=== PATIENT | female | born 1975 | race Caucasian/White ===

== ENCOUNTER → 2017-04-05 | Outpatient (CLI) | payer BC ==
[~2017-04-05] MED LIST: IBUP-1050 PO; PRENTAB26 PO
[2017-04-05 19:36] LABS: URINE APPEARANCE CLEAR (CLEAR); URINE BILIRUBIN NEG (NEG); URINE COLOR YELLOW; URINE NITRITE NEG (NEG); URINE SPECIFIC GRAVITY 1.015 (1.000-1.030); UROBILINOGEN NEG (NEG)
[2017-04-05 19:45] LABS: MANUAL MICROSCOPIC REQUIRED? NO; REVIEW REQ? NO
== END | disposition home or self-care (01) ==
LOC: C.LABSPEC 17:42
PROVIDERS: ATTEND Obstetrics & Gynecology
DX: O09.521 Supervision of elderly multigravida, first trimester (principal)

== ENCOUNTER → 2017-04-20 | Outpatient (CLI) | payer BC | END | disposition home or self-care (01) | LOC: C.PAPS 07:59 | PROVIDERS: ATTEND Obstetrics & Gynecology | DX: Z12.4 Encounter for screening for malignant neoplasm of cervix (principal) ==

== ENCOUNTER → 2017-04-20 | Outpatient (CLI) | payer BC ==
[2017-04-24 11:08] LABS: CHLAMYDIA TRACH RNA*** NOT DETECTED (NOT DETECTED); GC (NEIS GONORRHOEAE)RNA** NOT DETECTED (NOT DETECTED)
== END | disposition home or self-care (01) ==
LOC: C.LABSPEC 17:21
PROVIDERS: ATTEND Obstetrics & Gynecology
DX: O09.521 Supervision of elderly multigravida, first trimester (principal)

== ENCOUNTER → 2017-04-23 | Outpatient (CLI) | payer BC ==
[2017-04-23 11:14] LABS: PATIENT HEIGHT 167.6 cm
[2017-04-23 11:37] LABS: BASO % 0.1 %; BASO ABS # 0.01 K/uL (0-0.2); COMPLETE YES; HEMATOCRIT 38.7 % (37-47); IG% 0.3 %; LYMPH % 28.1 %; LYMPH ABS # 2.01 K/uL (1.2-3.4); MEAN CELL VOLUME 90.4 fL (80-100); MEAN CORPUSCULAR HEMOGLOBIN 31.5 pg (25-34); MEAN CORPUSCULAR HGB CONC 34.9 g/dl (32-36); MEAN PLATELET VOLUME 9.3 fL (7.4-10.4); MONO % 4.5 %; PLATELET COUNT 279 K/uL (130-400); RED BLOOD COUNT 4.28 M/uL (4.2-5.4); WHITE BLOOD COUNT 7.15 K/uL (4.8-10.8)
[2017-04-23 11:55] LABS: URINE TOTAL PROTEIN 5.8 mg/dl (0-11.9)
[2017-04-23 12:11] LABS: CREATININE 0.59 mg/dl (0.6-1.2); URINE TOTAL PROTEIN CALC 168.2 mg/24 hr (0-149.1)
== END | disposition home or self-care (01) ==
LOC: C.LAB 10:42
PROVIDERS: ATTEND Obstetrics & Gynecology
DX: O09.291 Supervision of pregnancy with other poor reproductive or obstetric history, first trimester (principal); O09.521 Supervision of elderly multigravida, first trimester

== ENCOUNTER → 2017-05-31 | Outpatient (CLI) | payer BC ==
[2017-05-31 14:12] LABS: GTGD 50 Grams
== END | disposition home or self-care (01) ==
LOC: C.LAB1850 09:11
PROVIDERS: ATTEND Obstetrics & Gynecology
DX: O09.522 Supervision of elderly multigravida, second trimester (principal)

== ENCOUNTER → 2017-08-27 | Outpatient (CLI) | payer BC ==
[2017-08-27 14:54] LABS: HEMATOCRIT 33.6 % (37-47)
[2017-08-27 16:29] LABS: URINE APPEARANCE CLEAR (CLEAR); URINE BILIRUBIN NEG (NEG); URINE COLOR YELLOW; URINE EPITHELIAL CELL AUTO 0-5 /lpf (0-5); URINE NITRITE NEG (NEG); URINE SPECIFIC GRAVITY 1.011 (1.000-1.030); UROBILINOGEN NEG (NEG)
[2017-08-27 16:50] LABS: MANUAL MICROSCOPIC REQUIRED? NO; REVIEW REQ? NO
[2017-08-27 17:14] LABS: GTGD 50 Grams
== END | disposition home or self-care (01) ==
LOC: C.LAB1850 12:10
PROVIDERS: ATTEND Obstetrics & Gynecology
DX: O09.523 Supervision of elderly multigravida, third trimester (principal); O09.293 Supervision of pregnancy with other poor reproductive or obstetric history, third trimester; Z3A.00 Weeks of gestation of pregnancy not specified

== ENCOUNTER → 2017-10-17 | Outpatient (CLI) | payer BC | END | disposition home or self-care (01) | LOC: C.LABSPEC 15:05 | PROVIDERS: ATTEND Obstetrics & Gynecology | DX: O09.523 Supervision of elderly multigravida, third trimester (principal); Z3A.00 Weeks of gestation of pregnancy not specified ==

== ENCOUNTER 2017-11-08 05:44 | Inpatient (IN) | payer BC ==
--- NOTE | 2017-11-07 13:33 | PAT Medication Instructions ---
Service Date Nov 07, 2017. Current Home Medication List Clindamycin Phosphate (Topical (Cleocin-T), 1 APPLN TOP BID PRN for acne Multivit/Min/Iron/Fol Ac/Pren ( Vitamin), 1 TAB PO DAILY Medication Instructions For Your Scheduled Surgery - Hold the following medications the morning of surgery: Clindamycin Phosphate (Topical (Cleocin-T), 1 APPLN TOP BID PRN for acne Multivit/Min/Iron/Fol Ac/Pren ( Vitamin), 1 TAB PO DAILY If you have any questions please call us at [phone] or [phone] or [phone]
[2017-11-07 14:01] LABS: BASO % 0.2 %; BASO ABS # 0.02 K/uL (0-0.2); COMPLETE YES; EOS % 0.5 %; HEMATOCRIT 35.9 % (37-47); IG% 0.3 %; LYMPH % 24.2 %; LYMPH ABS # 2.37 K/uL (1.2-3.4); MEAN CORPUSCULAR HEMOGLOBIN 33.8 pg (25-34); MEAN CORPUSCULAR HGB CONC 35.9 g/dl (32-36); MEAN PLATELET VOLUME 10.3 fL (7.4-10.4); MONO % 4.7 %; NEUT % 70.1 %; PLATELET COUNT 264 K/uL (130-400); RED BLOOD COUNT 3.82 M/uL (4.2-5.4); WHITE BLOOD COUNT 9.78 K/uL (4.8-10.8)
--- NOTE | 2017-11-07 18:10 | HISTORY & PHYSICAL EXAMINATION ---
DATE OF ADMISSION: 11/08/2017 PREOPERATIVE HISTORY AND PHYSICAL HISTORY OF PRESENT ILLNESS: Nikki is . She requests repeat section and bilateral tubal ligation. She is due November 14 and she is advanced maternal age. Her has been uncomplicated. She has been monitored closely for her advanced maternal age and prior HELLP syndrome, although she has had no evidence of it at this . PAST MEDICAL HISTORY: Healthy. PAST SURGICAL HISTORY: Prior wrist fracture and prior section. OBSTETRICAL HISTORY: One prior at 37 weeks and 6 days for severe preeclampsia, this was at [facility]. SOCIAL HISTORY: Nonsmoker, nondrinker. FAMILY HISTORY: Noncontributory. REVIEW OF SYSTEMS: Negative. PHYSICAL EXAMINATION: VITAL SIGNS: Stable. She is afebrile. CHEST: Clear. CARDIOVASCULAR: Normal rate and rhythm. No audible murmur. ABDOMEN: Gravid. heart rate tones reactive on nonstress test. IMPRESSION AND PLAN: Reviewed repeat section. Risks, benefits and alternatives. Consent signed. She also wishes a tubal ligation. Discussed risks of procedure of , tubal including but not limited to risks of bleeding, infection, injury to bowel, bladder, ureter, deep vein thrombosis and pulmonary embolus. Discussed an increased rate of internal organ injury on prior sections. We discussed failure rates and irreversibility of tubal ligations. The patient wishes to proceed with section and bilateral tubal ligation.
[~2017-11-08] VITALS: Ht 167.6 cm; Wt 80.0 kg
[2017-11-08] VITALS (12 sets, daily range): BP systolic 127–136; BP diastolic 63–76; PULSE 51–55; TEMP 36.5–36.8; O2SAT 98–100; Ht 167.6 cm; Wt 80.0 kg
[~2017-11-08 05:44] MED LIST changes: +CLIN1GEL TOP; -IBUP-1050 PO
[2017-11-08] MEDS ORDERED: LACTATED RINGER'S 1000ML 1,000 ML IV SCH ×2 (05:53→06:00)
[2017-11-08] MEDS ORDERED: CEFAZOLIN IV 2,000 MG in SYRINGE 0 ML IV SCH (06:00)
[2017-11-08] MEDS ORDERED: CITRIC ACID/SODIUM CITRATE 15 ML UDC PO SCH (06:00)
[2017-11-08 06:20] LABS: BASO % 0.3 %; BASO ABS # 0.03 K/uL (0-0.2); COMPLETE YES; EOS % 0.9 %; HEMATOCRIT 35.5 % (37-47); IG% 0.5 %; LYMPH % 33.3 %; LYMPH ABS # 3.39 K/uL (1.2-3.4); MEAN CELL VOLUME 93.2 fL (80-100); MEAN CORPUSCULAR HEMOGLOBIN 33.3 pg (25-34); MEAN CORPUSCULAR HGB CONC 35.8 g/dl (32-36); MEAN PLATELET VOLUME 9.8 fL (7.4-10.4); MONO % 6.9 %; NEUT % 58.1 %; PLATELET COUNT 254 K/uL (130-400); RED BLOOD COUNT 3.81 M/uL (4.2-5.4); WHITE BLOOD COUNT 10.19 K/uL (4.8-10.8)
--- NOTE | 2017-11-08 07:26 | History & Physical Bridge Note ---
H&P Re-Evaluation Bridge Note: I have examined the patient, reviewed the History & Physical and in the interval since the performance of the History & Physical I have noted the following changes of clinical significance: No changes noted
[2017-11-08] MEDS ORDERED: FENTANYL CITRATE INJ 50 MCG/1 ML 2 ML VIAL ONE (07:36)
[2017-11-08] MEDS ORDERED: MORPHINE SULFATE PF 2MG/2ML SYR ONE (07:36)
[2017-11-08] MEDS ORDERED: OXYTOCIN INJ 10 UNITS/ML VIAL ONE (07:37)
[2017-11-08] MEDS ORDERED: EpHEDrine SULFATE 50MG/5ML SYR ONE (07:54)
[2017-11-08] MEDS ORDERED: ONDANSETRON INJ 2 MG/ML 2 ML VIAL ONE (07:54)
--- NOTE | 2017-11-08 08:36 | [facility] Post Operative Brief Note ---
Immediate Operative Summary Operative Date Nov 08, 2017. Pre-Operative Diagnosis Repeat caesarean section and patient desires permanent sterilization Post-Operative Diagnosis Same as pre-op Procedure(s) Performed Low transverse uterine incision, repeat caesarean section and bilateral tubal ligation, delivery of live female child at [address] Almaz Rosado Tow Truck Driver Surgeon(s) Dr. Karime Peña, Dr. Evelyne Hanson Estimated Blood Loss 400 ml Findings normal anatomy Specimens A: Placenta B: Cord Blood C: Cord blood gases D: Portion of Right Fallopian Tube E: Portion of Left Fallopian Tube Drains Elizondo Anesthesia Spinal Complication(s) None Disposition L&D
[2017-11-08] MEDS ORDERED: MAGNESIUM HYDROXIDE SUSP 30 ML UDC PO PRN (08:45)
[2017-11-08] MEDS ORDERED: DC PCA PRN (08:45)
[2017-11-08] MEDS ORDERED: SENNA 8.6 MG TAB PO PRN (08:45)
[2017-11-08] MEDS ORDERED: LANOLIN OINT EXT PRN ×2 (08:45)
[2017-11-08] MEDS ORDERED: SUPERCREAM 0.870 % 15GM JAR EXT PRN (08:45)
[2017-11-08] MEDS ORDERED: LACTATED RINGER'S 1000ML 500 ML IV PRN (08:49)
[2017-11-08] MEDS ORDERED: NALOXONE HCL INJ 1 MG in SODIUM CHLORIDE 0.9% 1000ML 1,000 ML IV PRN (08:49)
[2017-11-08] MEDS ORDERED: NALOXONE HCL INJ 0.08 MG in SYRINGE 1.8 ML IV PRN (08:49)
[2017-11-08] MEDS ORDERED: SODIUM CHLORIDE 0.9% 1000ML 1,000 ML IV PRN (08:49)
--- NOTE | 2017-11-08 08:53 | Anesthesiology Progress Note ---
Anesthesia Post Op Note Date & Time Nov 08, 2017 at 08:53 Notes Mental Status: alert / awake / arousable, participated in evaluation Pt Amnestic to Procedure: Yes Nausea / Vomiting: adequately controlled Pain: adequately controlled Airway Patency, RR, SpO2: stable & adequate BP & HR: stable & adequate Hydration State: stable & adequate Neuraxial Anesthesia: was administered, sensory block is resolving Anesthetic Complications: no major complications apparent
[2017-11-08] MEDS ORDERED: NO NARCOTICS OR SEDATIVES SCH (09:00)
[2017-11-08] MEDS ORDERED: NALOXONE HCL 0.4 MG/1 ML VIAL/CARP IV PRN (09:00)
[2017-11-08] MEDS ORDERED: MEPERIDINE HCL 25 MG/ML CARP IV PRN (09:00)
[2017-11-08] MEDS ORDERED: NALBUPHINE HCL INJ 10 MG/ML AMP IV PRN (09:00)
[2017-11-08] MEDS ORDERED: MoRPHine SULFATE PF 1 MG/ML 10 ML AMP/VIAL EPI PRN (09:00)
[2017-11-08] MEDS ORDERED: EpHEDrine SULFATE INJ 50 MG/ML AMP IV PRN (09:00)
[2017-11-08] MEDS ORDERED: DiphenhydrAMINE HCL 50 MG/ML VIAL IV PRN (09:00)
[2017-11-08] MEDS ORDERED: MoRPHine SULFATE 2 MG/ML CARP IV PRN (09:00)
[2017-11-08] MEDS ORDERED: ONDANSETRON INJ 2 MG/ML 2 ML VIAL IV PRN (09:00)
--- NOTE | 2017-11-08 09:08 | OPERATIVE REPORT ---
DATE OF OPERATION: 11/08/2017 PREOPERATIVE DIAGNOSES: Repeat and the patient desires permanent sterilization. POSTOPERATIVE DIAGNOSES: Same. PROCEDURE: Low segment transverse section and bilateral tubal ligation. SURGEON: Dr. Rosado. PLAN COORDINATOR: Dr. Jessica Peña and Dr. Hanson, [facility] resident. ESTIMATED BLOOD LOSS: 400 mL FINDINGS: Normal anatomy. SPECIMENS: Placenta, cord blood, cord gases, portion of right fallopian tube, portion of left fallopian tube. DRAINS: Elizondo. ANESTHETIC: Spinal. COMPLICATIONS: None. DISPOSITION: Labor and delivery. Nikki was given a spinal anesthetic, prepped and draped in supine position after having a Elizondo catheter placed in her bladder by nursing. Skin area was tested with pickups with teeth and IV antibiotics were given preoperatively. Scalpel used over previous Pfannenstiel incision, dissecting down through subcutaneous fat to the fascia in the midline. Fascia cut laterally with curved Mcnally scissors. Rectus muscles released from the fascia superiorly and inferiorly with the curved Mayos, rectus muscle split. Peritoneal cavity entered in a superior location. Peritoneal cavity opening enlarged to allow exposure. Bladder retractor placed. Metzenbaums used to dissect away the bladder flap from the low segment of the uterus. Incision of the uterus with a scalpel, low segment transverse. Entry of the uterus was done bluntly with a hemostat and then incision extended in the usual fashion with the shaping machine operator's fingers. Clear fluid. Nuchal cord x1 which was released over the head. Baby was delivered by flexion of the head and then pressure on the abdomen by the daycare assistant. Mouth and then nares suctioned. Cord was passed easily over the head. Baby delivered by gentle traction. No excessive force used. Live vigorous female infant. Cord clamped and cut. Cord gases and cord blood obtained. Placenta removed from the uterus. Uterus exteriorized. IV Pitocin started. We used a moist lap to ensure all placenta removed from the uterus. Uterus then closed in the usual fashion, running 0 Monocryl locked and a second 0 Monocryl nonlocked. At this stage, we then performed the tubal ligation. This was done by modified Michael. Right fallopian tube was grasped with a [place], chromic stitch then used to tie off the fallopian tube both proximally and distally to the [place]. Hemostat placed at this time and a second tie was then placed below this for double ligation. Fallopian tube was then cut and then specimen sent to pathology. Hemostasis excellent. Same process repeated exactly on the right and the left. At this stage of the uterus, we suctioned the cul-de-sac and bladder flap regions and irrigated them. Uterus was placed back in the peritoneal cavity. On inspection, both fallopian tube sites were hemostatic as was the uterine incision and uterine corners. Instruments removed from the abdomen. Urine was clear at this stage. Rectus muscles were hemostatic. Fascia closed with 0 Vicryl, subcutaneous fat irrigated and closed with 3-0 Vicryl, skin closed with 4-0 subcuticular Monocryl and Steri-Strips. Sponge and instrument counts correct. I attest to the content of the Intraoperative Record and any orders documented therein. Any exception s are noted below.
[2017-11-08] MEDS ORDERED: LABETALOL HCL IV 5 MG/ML 20ML IV ONE (09:30)
[2017-11-08] MEDS: KETOROLAC TROMETHAMINE 30 MG/ML VIAL IV. PRN ×2 (11:07→22:27)
[2017-11-08] MEDS: SIMETHICONE 80 MG CHEW PO SCH ×3 (12:06→19:46)
[2017-11-08] MEDS: OXYTOCIN INJ 20 UNITS in LACTATED RINGER'S 1000ML 1,000 ML IV SCH ×2 (13:33→22:22)
[2017-11-08] MEDS: DOCUSATE SODIUM 100 MG CAP PO SCH (19:46)
[2017-11-09] VITALS: BP 128/75; PULSE 51; TEMP 36.3; O2SAT 98; O2SAT 99
[2017-11-09] MEDS ORDERED: ONDANSETRON INJ 2 MG/ML 2 ML VIAL IV PRN (02:00)
[2017-11-09] MEDS ORDERED: DC INTRASPINAL MORPHINE SCH (02:00)
[2017-11-09] MEDS ORDERED: OXYCODONE/ACETAMINOPHEN 5-325 TAB PO PRN (02:00)
[2017-11-09 04:00] VITALS: BP 126/70; PULSE 52; TEMP 36.5; O2SAT 99
[2017-11-09] MEDS: KETOROLAC TROMETHAMINE 30 MG/ML VIAL IV. PRN ×2 (05:11→06:46)
--- NOTE | 2017-11-09 06:47 | Progress Note ---
Subjective Nov 09, 2017. Subjective conversation w/ patient (pt reports episode of emesis yesterday afternoon - says she felt ill after having not napped all day, lots of visitors, took a pain pill and drank 5 jugs of water in one setting and then vomited. Denies any further episodes of emesis or nausea.), physical exam, chart review, lab review Ambulation: ambulating normally Voiding: no voiding problems Review of Systems Respiratory: No shortness of breath Abdomen: + vomiting (as above) Female : No dysuria Objective Vital Signs Date Time Temp Pulse Resp B/P (MAP) Pulse Ox O2 Delivery O2 Flow Rate FiO2 11/09/17 04:00 36.5 52 18 126/70 (88) 99 Room Air 11/09/17 00:00 36.3 51 18 128/75 (92) 99 Room Air 11/09/17 00:00 18 98 11/09/17 00:00 99 Room Air 11/08/17 23:00 18 98 11/08/17 22:00 16 99 11/08/17 21:00 18 100 11/08/17 20:00 18 100 11/08/17 19:55 36.8 55 18 136/76 (96) 100 Room Air 11/08/17 18:55 18 100 11/08/17 14:14 16 100 11/08/17 14:14 36.7 51 16 127/63 (84) 100 Room Air 11/08/17 14:01 18 100 11/08/17 13:35 18 99 11/08/17 13:03 18 100 11/08/17 13:03 36.6 53 18 136/75 (95) 100 Room Air 11/08/17 12:40 18 100 11/08/17 11:46 36.5 51 18 127/72 (90) 100 Room Air 11/08/17 11:46 18 100 11/08/17 11:46 100 Room Air Physical Exam General Appearance: WELL-APPEARING, WD/WN, NO APPARENT DISTRESS Respiratory/Chest: lungs clear, normal breath sounds, no respiratory distress Cardiovascular: regular rate, rhythm, no gallop Abdomen: normal bowel sounds, soft Fundus: Firm, Non-Tender, Relation to Umbilicus (1 below U) Incision Description: Clean, Dry & Intact Extremities: non-tender, normal inspection Laboratory Results Last 24 Hours Test 11/09/17 06:00 Assessment and Plan Post-Op Day#: 1 Continue Routine Care: 42 yof (now2) s/p repeat c/s 11/08 Vitals reviewed and wnl - pt says 50s for her pulse is normal for her Hgb 12.9, 12.7, today pending Pt doing well clinically - discussed listening to her body today and resting when she needs to rest, and minimizing too many visitors. Says only her mom and maybe her sister will be here today. Discussed possible dc tomorrow, pt wants this. Continue routine care - encourage ambulation, monitor lochia, control pain with motrin tylenol only, would rec avoiding percocet. ALIE HANSON FMR PGY 1 Resident Physician Supervision Note: I interviewed and examined the patient. Discussed with Dr. Hanson and agree with findings and plan as documented in the note. Any exceptions or clarifications are listed here: [None] Documented By: Aguilar Rosado Resident Tracking Resident Involvement: Resident Care Provided Care Provided: OB Delivery
[2017-11-09 07:05] LABS: BASO % 0.3 %; BASO ABS # 0.03 K/uL (0-0.2); COMPLETE YES; EOS % 1.6 %; HEMATOCRIT 33.8 % (37-47); IG% 0.3 %; LYMPH ABS # 2.08 K/uL (1.2-3.4); MEAN CELL VOLUME 92.1 fL (80-100); MEAN CORPUSCULAR HEMOGLOBIN 33.2 pg (25-34); MEAN CORPUSCULAR HGB CONC 36.1 g/dl (32-36); MEAN PLATELET VOLUME 9.8 fL (7.4-10.4); MONO % 5.9 %; NEUT % 73.9 %; PLATELET COUNT 223 K/uL (130-400); RED BLOOD COUNT 3.67 M/uL (4.2-5.4); WHITE BLOOD COUNT 11.54 K/uL (4.8-10.8)
[2017-11-09] MEDS: PRENATAL VITAMIN TAB PO SCH (08:50)
[2017-11-09] MEDS: SIMETHICONE 80 MG CHEW PO SCH ×4 (08:50→20:24)
[2017-11-09] MEDS: DOCUSATE SODIUM 100 MG CAP PO SCH ×2 (08:50→20:24)
[2017-11-09 09:30] VITALS: BP 133/72; PULSE 46; TEMP 36.8; O2SAT 99
[2017-11-09 11:30] VITALS: BP 140/81; PULSE 54; TEMP 37.1; O2SAT 99
[2017-11-09] MEDS: IBUPROFEN 600 MG TAB PO PRN ×3 (12:05→22:44)
[2017-11-09] MEDS: OXYCODONE/ACETAMINOPHEN 5-325 TAB PO PRN ×3 (12:59→22:44)
--- NOTE | 2017-11-09 13:27 | Discharge Instructions ---
Discharge Instructions Date of Service Nov 09, 2017. Admission Reason for Admission: Previous Delivery Discharge Discharge Diagnosis / Problem: Delivery Discharge Goals Goal(s): Routine recovery after Medications Continue Dispensed Medications: supercream, lansinoh Activity Recommendations Activity Limitations: per Instructions/Follow-up section . Instructions / Follow-Up Instructions / Follow-Up ACTIVITY RECOMMENDATIONS: * Gradual return to full activity over the next 2-3 weeks. * No lifting - nothing heavier than baby over the next 2-3 weeks. * Do not engage in vigorous exercise, sexual activity or sports until cleared by your physician. * Do not drive or operate any motorized equipment until cleared by your physician. * You may shower/bathe daily. MEDICATIONS: For discomfort or pain, you may use Acetaminophen (Tylenol), Ibuprofen (Advil), or Naproxen (Aleve) following the package directions. For constipation you may use Colace following the package directions. BREAST CARE: If you are not breast feeding: * Wear a supportive bra 24 hours a day for one to two weeks. * Avoid stimulating your breasts and nipples as much as possible during the first few weeks after delivery. * When taking a shower, have the warm water hit your back, not breasts. * When your breasts feel full, apply ice packs. Usually three to four times a day helps ease the discomfort. * Take a mild pain medication (Tylenol / Motrin) when you are uncomfortable. If breast feeding: * Use breast milk to lubricate nipples. Lansinoh cream may be used for sore nipples. You do not need to remove cream prior to breast feeding. If using a different brand of cream, check the label for directions regarding removal of cream prior to nursing. * Wear a supportive bra. * If having problems with breasts or breast feeding, call a marine engineering consultant or your health care provider. SPECIAL CARE INSTRUCTIONS: When you are discharged from the hospital, it is important for you to follow the instructions listed below: * During the first week at home, you should be able to care for yourself and your baby. In addition, the usual light household activities are encouraged. * Limit your activities to the way you feel. Do not try to clean the house or move furniture. Be sensible. * If you actively engage in sports and have done so up until the time of your delivery, you may resume these activities as soon as you feel able. This may take up to one month or even longer. Use good judgment. * Continue to take your vitamins for at least six weeks after the of your baby. * Your diet need not be limited unless you were on a special diet before your delivery. Breast-feeding mothers need around 2500 calories per day and at least 64-80 ounces of fluid per day (8 to 10 glasses). * You should eat foods from the four major food groups. Crash diets or fad diets are to be avoided. Eating lean meats, fresh fruits and vegetables, low-fat dairy products, high fiber foods and a regular exercise program, will help you get back to your pre- weight without putting your health at risk. * Constipation is sometimes a problem after delivery. Take a mild laxative as needed. If breast feeding, Milk of Magnesia is acceptable to use. You may use a suppository or Fleets enema. * A daily shower or tub bath is suggested. Wash incision daily with warm soapy water and pat dry. It doesn't need to be covered unless drainage is present. * A bloody vaginal discharge will usually continue until around four weeks . A small amount of bleeding may continue for as long as six weeks. Vaginal discharge changes from the bright red bleeding after delivery to pink then brownish and finally yellowish-pink before becoming white and disappearing. * Bleeding may increase with activity. Your first period may come in 4-8 weeks. If you are breast feeding, your period may be delayed even longer. * [place] (sex) can begin whenever both you and your partner feel comfortable and do not have any form of genital infection. It is recommended that you wait at least six weeks for internal and external healing to occur. If you have questions, please talk to your health care practitioner. A condom should be used to prevent infection and . * Foreplay, gentle intercourse and lubrication is very important the first several times to prevent pain. A water-based lubricant such as K-Y jelly or Astroglide may be used. * If you have RH negative blood and your baby is RH positive, you will receive RHOGAM by injection prior to discharge. The nurse will give you a card to keep with you that has the date and place that you received RHOGAM after delivery. * During your care, you had a Rubella screen done to check for the presence of rubella antibodies in your blood. If your test was negative, you will receive a Rubella vaccine prior to discharge. This vaccine may cause a fever, soreness at the injection site and flu-like symptoms. If these symptoms persist, notify your health care practitioner. is not advised for one month after a Rubella vaccine. * Verbalizes understanding of car seat law as reviewed with patient nursing. * Car Seat hand-out given and reviewed with patient by nursing. * Shaken baby information reviewed with patient by nursing. Call you doctor if: * Heavy bleeding (saturating several pads an hour) or passing clots the size of your fist. * A fever >101 degrees F (38.3 degrees C) on two occasions four hours apart and /or chills. * Unusual pain in the pelvic or vaginal areas. * Call the doctor for any increased redness, drainage or swelling around the incision and any pain unrelieved by prescribed pain medication. * "Baby Blues" lasting longer than two weeks. If you have any questions or concerns, call your health care practitioner at . FOLLOW UP VISIT: * Please call the office at to schedule a 6 week examination. It is important you keep this appointment. It is important for you to make arrangements for either yearly or twice yearly check-ups thereafter. Current Hospital Diet Patient's current hospital diet: Regular OB Diet Discharge Diet Recommended Diet: Regular Diet Procedures Procedures Performed: Low transverse uterine incision, repeat caesarean section and bilateral tubal ligation, delivery of live female child at 0806 Pending Studies Studies pending at discharge: no Medical Emergencies . Who to Call and When: Medical Emergencies: If at any time you feel your situation is an emergency, please call [phone] immediately. . Non-Emergent Contact Non-Emergency issues call your: Primary Care Provider . . "Provider Documentation" section prepared by Marguerite Hanson. . VTE Core Measure Inpt VTE Proph given/why not?: SCD's
[2017-11-09 16:15] VITALS: BP 126/75; PULSE 49; TEMP 36.8; O2SAT 96
[2017-11-09] MEDS ORDERED: BISACODYL 5 MG TABEC PO ONE (22:00)
[2017-11-09 23:50] VITALS: BP 135/75; PULSE 51; TEMP 36.5
[2017-11-10] MEDS: IBUPROFEN 600 MG TAB PO PRN (05:27)
[2017-11-10] MEDS: OXYCODONE/ACETAMINOPHEN 5-325 TAB PO PRN ×2 (05:28→10:40)
[2017-11-10 06:55] LABS: HEMATOCRIT 34.8 % (37-47)
--- NOTE | 2017-11-10 07:58 | Progress Note ---
Subjective Nov 10, 2017. Subjective conversation w/ patient, physical exam, chart review, lab review Ambulation: ambulating normally Voiding: no voiding problems Passing Gas: Yes Diet Tolerance: Regular Diet Lochia: Moderate Feeding Type: Breast Feeding Pain: controlled Review of Systems Respiratory: No shortness of breath Abdomen: No vomiting Female : No dysuria Objective Vital Signs Date Time Temp Pulse Resp B/P (MAP) Pulse Ox O2 Delivery O2 Flow Rate FiO2 11/09/17 23:50 Room Air 11/09/17 23:50 36.5 51 16 135/75 (95) Room Air 11/09/17 16:15 96 Room Air 11/09/17 16:15 36.8 49 15 126/75 (92) 96 Room Air 11/09/17 11:30 37.1 54 16 140/81 (100) 99 Room Air 11/09/17 09:30 Room Air 11/09/17 09:30 36.8 46 16 133/72 (92) 99 Room Air Physical Exam General Appearance: WELL-APPEARING, WD/WN, NO APPARENT DISTRESS Respiratory/Chest: lungs clear, normal breath sounds, no respiratory distress Cardiovascular: regular rate, rhythm, no gallop Abdomen: normal bowel sounds, soft Fundus: Firm, Non-Tender, Relation to Umbilicus (2 below U) Incision Description: Clean, Dry & Intact Extremities: non-tender, normal inspection Laboratory Results Last 24 Hours Test 11/10/17 06:22 Hemoglobin 12.4 g/dL Hematocrit 34.8 % Assessment and Plan Post-Op Day#: 2 Continue Routine Care: 42 yof (now2) s/p repeat c/s 11/08 Vitals reviewed and wnl - pt says 50s for her pulse is normal for her Hgb 12.9, 12.7, 12.2. No s/s anemia. Pt doing well clinically - counselled on dc instructions. Continue routine care - encourage ambulation, monitor lochia, control pain with motrin tylenol only, pt has tried percocet yesterday with no issues, and desires script. ALIE HANSON FMR PGY 1 Resident Physician Supervision Note: I interviewed and examined the patient. Discussed with Dr. Hanson and agree with findings and plan as documented in the note. Any exceptions or clarifications are listed here: [None] Documented By: Daniela Rich Resident Tracking Resident Involvement: Resident Care Provided Care Provided: OB Delivery
[2017-11-10] MEDS ORDERED: OXYC-57 PO (08:00)
[2017-11-10] MEDS: SIMETHICONE 80 MG CHEW PO SCH (08:25)
[2017-11-10] MEDS: DOCUSATE SODIUM 100 MG CAP PO SCH (08:25)
[2017-11-10] MEDS: PRENATAL VITAMIN TAB PO SCH (08:25)
[2017-11-10 12:25] VITALS: BP_DIAS 75; PULSE 51; TEMP 36.5
== END 2017-11-10 12:25 | disposition home or self-care (01) | DRG 766 ==
LOC: C.LD 05:44 → C.OBG 12:01 → EDSTATUS 14:45
PROVIDERS: ADMIT Obstetrics & Gynecology; ATTEND Obstetrics & Gynecology
PROC: 0UL70ZZ Occlusion of Bilateral Fallopian Tubes, Open Approach (ICD-10-PCS; principal; 2017-11-08 07:30)
PROC: 10D00Z1 Extraction of Products of Conception, Low, Open Approach (ICD-10-PCS; principal; 2017-11-08 07:30)
DX: O69.81X0 Labor and delivery complicated by cord around neck, without compression, not applicable or unspecified (principal); Z30.2 Encounter for sterilization; Z3A.39 39 weeks gestation of pregnancy; Z37.0 Single live birth; Z87.59 Personal history of other complications of pregnancy, childbirth and the puerperium